=== PATIENT | female | born 1945 | race Caucasian/White ===

== ENCOUNTER → 2020-01-04 | Outpatient (CLI) | payer OTHER ==
[~2020-01-04] MED LIST: ERYT.5TO LEFTEYE; LEVSOD75 PO; TOBDEXOPSU LEFTEYE; Ultram50 MG PO
== END | disposition home or self-care (01) ==
LOC: LAB SHORT 14:57 → PLD 14:57
DX: L57.0 Actinic keratosis (principal)
CPT/HCPCS: 88305